=== PATIENT | female | born 1955 | race American Indian/Alaskan Native ===

== ENCOUNTER 2017-01-26 21:03 | Emergency (ER) | payer MEDICARE ==
--- NOTE | 2017-01-27 02:52 | Emergency Department Report ---
ED General Adult HPI - General Chief complaint: Tube Replacement Stated complaint: PEG TUBE REPLACE Time Seen by Provider: 01/26/17 21:25 Source: EMS Mode of arrival: Stretcher Limitations: No Limitations - History of Present Illness Initial comments: 61-year-old female with past medical history of hypertension, cerebral infarction, aphasia, vascular dementia, dysphagia, and G-tube dependence presents to the hospital complains of dislodgment of G-tube prior to arrival. [facility] did not provide her previous G-tube size. Per medical record review patient had a 20 Danish G-tube placed in December 2015. Patient denies any pain. Severity scale (0 -10): 0 - Related Data Home Medications Medication Instructions Recorded Confirmed Last Taken Carvedilol 25 mg FEEDTUBE DAILY 11/13/15 11/13/15 11/12/15 08:00 Clopidogrel 75 mg FEEDTUBE DAILY 11/13/15 11/13/15 11/12/15 08:00 Furosemide 20 mg FEEDTUBE DAILY 11/13/15 11/13/15 11/12/15 08:00 Klor-Con 20 mg FEEDTUBE DAILY 11/13/15 11/13/15 11/12/15 08:00 Loperamide 2 mg FEEDTUBE DAILY 11/13/15 11/13/15 11/12/15 08:00 Ondansetron 4 mg FEEDTUBE DAILY 11/13/15 11/13/15 11/12/15 08:00 amLODIPine 10 mg FEEDTUBE DAILY 11/13/15 11/13/15 11/12/15 08:00 Allergies Allergy/AdvReac Type Severity Reaction Status Date / Time No Known Allergies Allergy Unverified 11/13/15 16:33 ED Review of Systems ROS: Stated complaint: PEG TUBE REPLACE Other details as noted in HPI Comment: All other systems reviewed and negative Other: Constitutional: No fevers chills Eyes: No eye pain visual changes ENT: No ear pain or throat pain Neck: Denies pain Respiratory: Denies cough wheezing shortness of breath Cardiovascular: Denies chest pain GI: Denies abdominal pain Musculoskeletal: Denies back pain Neurologic: Denies headache ED Past Medical Hx - Past Medical History Previous Medical History?: Yes Hx Hypertension: Yes Additional medical history: cerebral infarction, Aphasia, Afib, Vascular dementia, Polyosteoarthritis, Dysphagia, Cognitive Communication Deficit, Pneumonia, Acute Resp Failure. - Surgical History Additional Surgical History: gtube. IVC filter - Social History Smoking Status: Never Smoker Substance Use Type: None - Medications Home Medications: Home Medications Medication Instructions Recorded Confirmed Last Taken Type Carvedilol 25 mg FEEDTUBE DAILY 11/13/15 11/13/15 11/12/15 08:00 History Clopidogrel 75 mg FEEDTUBE DAILY 11/13/15 11/13/15 11/12/15 08:00 History Furosemide 20 mg FEEDTUBE DAILY 11/13/15 11/13/15 11/12/15 08:00 History Klor-Con 20 mg FEEDTUBE DAILY 11/13/15 11/13/15 11/12/15 08:00 History Loperamide 2 mg FEEDTUBE DAILY 11/13/15 11/13/15 11/12/15 08:00 History Ondansetron 4 mg FEEDTUBE DAILY 11/13/15 11/13/15 11/12/15 08:00 History amLODIPine 10 mg FEEDTUBE DAILY 11/13/15 11/13/15 11/12/15 08:00 History ED Physical Exam - General Limitations: No Limitations - Other Other exam information: MGeneral: No limitations, patient is alert in no acute distress Head exam: Atraumatic, normocephalic Eyes exam: Normal appearance ENT: Moist mucous membrane Neck exam: Normal inspection Respiratory exam: Clear to auscultation bilateral, no wheezes, rales, crackles Cardiovascular: Normal rate and rhythm, normal heart sounds Abdomen: Soft, nondistended, and nontender, with normal bowel sounds, no rebound, or guarding. PEG stoma noted Back: Normal Inspection Neurologic: Alert, follows commands cooperative, speech is not fluid but can answer basic questions, no facial droop, possible mild decreased strength in the right upper extremity. Sensation grossly intact Psychiatric: normal affect, normal mood Skin: Warm, dry, intact ED Course Vital Signs 01/26/17 01/26/17 01/26/17 21:21 21:26 23:00 Temperature 98.6 F Pulse Rate 74 67 Respiratory 18 18 14 Rate Blood Pressure 134/52 113/50 [Left] O2 Sat by Pulse 99 98 97 Oximetry 01/27/17 02:57 Temperature Pulse Rate 71 Respiratory 14 Rate Blood Pressure 123/77 [Left] O2 Sat by Pulse 99 Oximetry - Reevaluation(s) Reevaluation #1: 01/27/17 02:[address] a 18 Danish and a 16 Danish PEG tube unsuccessfully. I was able to place a 14 Danish tube successfully. Gastrografin study ordered - Consultations Consultation #1: 01/27/[address] Persaud after attempting to place 18 and then a 16 Danish catheter unsuccessfully. He states that I may place as small as a size patient tolerates then she may be discharged home with outpatient follow-up ED Medical Decision Making - Radiology Data Radiology results: report reviewed (x-ray Gastrografin study: Gastrostomy tube in proper position. Positive IVC filter) - Medical Decision Making Successful replacement of G-tube. I was only able to place a 14-gauge catheter. This was discussed with Dr. Persaud suggest patient follow-up within 1 week to have her PEG tube exchange. - Differential Diagnosis dislodged peg Critical Care Time: No Critical care attestation.: If time is entered above; I have spent that time in minutes in the direct care of this critically ill patient, excluding procedure time. ED Disposition Clinical Impression: Dislodged gastrostomy tube, PEG (percutaneous endoscopic gastrostomy) adjustment/replacement/removal Disposition: DC-01 TO HOME OR SELFCARE Is pt being admited?: No Does the pt Need Aspirin: No Condition: Stable Instructions: How to Use and Care for Your PEG Tube (ED) Additional Instructions: It is very important to follow-up with the GI doctor within 1 week for gastrostomy tube exchanged to larger size Referrals: PRIMARY MD ANISA [Primary Care Provider] - 2-3 Days FRANK PERSAUD MD [Staff Physician] - 3-5 Days (GI doctor ) Time of Disposition: 04:40
[2017-01-27 02:57] VITALS: BP 123/77
--- NOTE | 2017-01-27 04:29 | XRay Report ---
FINAL REPORT PROCEDURE: XR G-TUBE STUDY TECHNIQUE: Abdominal series, including supine and upright AP views. HISTORY: s/p g tube placement COMPARISON: No prior studies are available for comparison. FINDINGS: Bowel gas pattern:There is fecal impaction. There is no mechanical bowel obstruction. There is no bowel wall thickening.. Masses or calcifications:None . Bony structures:No significant abnormality . There is an IVC filter. Pneumoperitoneum:None . Other:There is a gastrostomy tube. There contrast in the tube and the stomach. There is no obstruction or leakage.. IMPRESSION: Gastrostomy tube is in proper position..
== END 2017-01-27 06:15 | disposition home or self-care (01) ==
LOC: ED 21:03
DX: K94.23 Gastrostomy malfunction (principal)
CPT/HCPCS: 43760; 74000; 99284; Q9963

== ENCOUNTER 2017-07-03 01:19 | Emergency (ER) | payer MEDICARE ==
--- NOTE | 2017-07-03 03:24 | Emergency Department Report ---
ED General Adult HPI - General Chief complaint: Tube Replacement Stated complaint: PULLED TUBE OUT Time Seen by Provider: 07/03/17 02:42 Source: EMS Mode of arrival: Stretcher Limitations: Altered Mental Status, Physical Limitation - History of Present Illness Initial comments: Patient is 61 years old shelter patient with history of CVA hypertension, sent from shelter for G-tube replacement. [facility] reported that patient G-tube fell off this evening. No other complaint. - Related Data Home Medications Medication Instructions Recorded Confirmed Last Taken Carvedilol 25 mg FEEDTUBE DAILY 11/13/15 11/13/15 11/12/15 08:00 Clopidogrel 75 mg FEEDTUBE DAILY 11/13/15 11/13/15 11/12/15 08:00 Furosemide 20 mg FEEDTUBE DAILY 11/13/15 11/13/15 11/12/15 08:00 Klor-Con 20 mg FEEDTUBE DAILY 11/13/15 11/13/15 11/12/15 08:00 Loperamide 2 mg FEEDTUBE DAILY 11/13/15 11/13/15 11/12/15 08:00 Ondansetron 4 mg FEEDTUBE DAILY 11/13/15 11/13/15 11/12/15 08:00 amLODIPine 10 mg FEEDTUBE DAILY 11/13/15 11/13/15 11/12/15 08:00 Allergies Allergy/AdvReac Type Severity Reaction Status Date / Time No Known Allergies Allergy Verified 07/03/17 02:12 ED Review of Systems ROS: Stated complaint: PULLED TUBE OUT Other details as noted in HPI Comment: All other systems reviewed and negative Constitutional: denies: chills, fever Respiratory: denies: cough, shortness of breath Cardiovascular: denies: chest pain, palpitations Gastrointestinal: denies: abdominal pain, nausea, vomiting ED Past Medical Hx - Past Medical History Previous Medical History?: Yes Hx Hypertension: Yes Additional medical history: cerebral infarction, Aphasia, Afib, Vascular dementia, Polyosteoarthritis, Dysphagia, Cognitive Communication Deficit, Pneumonia, Acute Resp Failure. - Surgical History Past Surgical History?: Yes Additional Surgical History: gtube. IVC filter - Social History Smoking Status: Never Smoker Substance Use Type: None - Medications Home Medications: Home Medications Medication Instructions Recorded Confirmed Last Taken Type Carvedilol 25 mg FEEDTUBE DAILY 11/13/15 11/13/15 11/12/15 08:00 History Clopidogrel 75 mg FEEDTUBE DAILY 11/13/15 11/13/15 11/12/15 08:00 History Furosemide 20 mg FEEDTUBE DAILY 11/13/15 11/13/15 11/12/15 08:00 History Klor-Con 20 mg FEEDTUBE DAILY 11/13/15 11/13/15 11/12/15 08:00 History Loperamide 2 mg FEEDTUBE DAILY 11/13/15 11/13/15 11/12/15 08:00 History Ondansetron 4 mg FEEDTUBE DAILY 11/13/15 11/13/15 11/12/15 08:00 History amLODIPine 10 mg FEEDTUBE DAILY 11/13/15 11/13/15 11/12/15 08:00 History ED Physical Exam - General Limitations: Altered Mental Status, Physical Limitation General appearance: alert, in no apparent distress - Head Head exam: Present: atraumatic, normocephalic - Eye Eye exam: Present: normal appearance - Neck Neck exam: Present: normal inspection. Absent: tenderness - Respiratory Respiratory exam: Present: normal lung sounds bilaterally. Absent: respiratory distress, wheezes, chest wall tenderness - Cardiovascular Cardiovascular Exam: Present: regular rate, normal rhythm, normal heart sounds - GI/Abdominal GI/Abdominal exam: Present: soft, normal bowel sounds, other (G-tube not in place.). Absent: distended, tenderness, guarding, rebound, rigid, organomegaly , mass, bruit, pulsatile mass, hernia - Feeding Tube Replacement Reason for Replacement: fell out Initial Tube Inserted: greater than 4 weeks Type of Tube: gastrostomy Use of Tube: medications and feeding Insertion Site Prior to Procedure: clean Tube Used for Reinsertion: [place] Tube Size (F): 14 Verification of Placement: auscultation Tube Secured by: G-tube attachment device Patient Tolerated Procedure: well, no complications Critical care attestation.: If time is entered above; I have spent that time in minutes in the direct care of this critically ill patient, excluding procedure time. ED Disposition Clinical Impression: Gastrostomy tube dysfunction Disposition: DC-01 TO HOME OR SELFCARE Is pt being admited?: No Condition: Stable Instructions: How to Use and Care for Your PEG Tube (ED) Referrals: NITA OSEI MD [Primary Care Provider] - 3-5 Days
[2017-07-03 07:15] VITALS: BP 88/40
== END 2017-07-03 07:38 | disposition home or self-care (01) ==
LOC: ED 01:19
DX: K94.29 Other complications of gastrostomy (principal); I10 Essential (primary) hypertension

== ENCOUNTER 2018-07-19 05:58 | Emergency (ER) | payer MEDICARE ==
[2018-07-19 06:13] VITALS: BP 150/64
--- NOTE | 2018-07-19 06:36 | Emergency Department Report ---
ED General Adult HPI - General Chief complaint: Tube Replacement Stated complaint: G TUBE COMPLICATIONS Time Seen by Provider: 07/19/18 06:34 Source: EMS Mode of arrival: Stretcher Limitations: Other - History of Present Illness Initial comments: 62-year-old female with a past medical history multiple chronic conditions and PEG tube presents to the hospital with a tear in her G tube. Patient denies any pain Severity scale (0 -10): 0 - Related Data Home Medications Medication Instructions Recorded Confirmed Last Taken Carvedilol 25 mg FEEDTUBE DAILY 11/13/15 11/13/15 11/12/15 08:00 Clopidogrel 75 mg FEEDTUBE DAILY 11/13/15 11/13/15 11/12/15 08:00 Furosemide 20 mg FEEDTUBE DAILY 11/13/15 11/13/15 11/12/15 08:00 Klor-Con 20 mg FEEDTUBE DAILY 11/13/15 11/13/15 11/12/15 08:00 Loperamide 2 mg FEEDTUBE DAILY 11/13/15 11/13/15 11/12/15 08:00 Ondansetron 4 mg FEEDTUBE DAILY 11/13/15 11/13/15 11/12/15 08:00 amLODIPine 10 mg FEEDTUBE DAILY 11/13/15 11/13/15 11/12/15 08:00 Allergies Allergy/AdvReac Type Severity Reaction Status Date / Time No Known Allergies Allergy Verified 07/03/17 02:12 ED Review of Systems ROS: Stated complaint: G TUBE COMPLICATIONS Other details as noted in HPI Comment: All other systems reviewed and negative ED Past Medical Hx - Past Medical History Hx Hypertension: Yes Additional medical history: cerebral infarction, Aphasia, Afib, Vascular dementia, Polyosteoarthritis, Dysphagia, Cognitive Communication Deficit, Pneumonia, Acute Resp Failure. - Surgical History Additional Surgical History: gtube. IVC filter - Social History Smoking Status: Never Smoker Substance Use Type: None - Medications Home Medications: Home Medications Medication Instructions Recorded Confirmed Last Taken Type Carvedilol 25 mg FEEDTUBE DAILY 11/13/15 11/13/15 11/12/15 08:00 History Clopidogrel 75 mg FEEDTUBE DAILY 11/13/15 11/13/15 11/12/15 08:00 History Furosemide 20 mg FEEDTUBE DAILY 11/13/15 11/13/15 11/12/15 08:00 History Klor-Con 20 mg FEEDTUBE DAILY 11/13/15 11/13/15 11/12/15 08:00 History Loperamide 2 mg FEEDTUBE DAILY 11/13/15 11/13/15 11/12/15 08:00 History Ondansetron 4 mg FEEDTUBE DAILY 11/13/15 11/13/15 11/12/15 08:00 History amLODIPine 10 mg FEEDTUBE DAILY 11/13/15 11/13/15 11/12/15 08:00 History ED Physical Exam - General Limitations: Other - Other Other exam information: General: No limitations, patient is alert in no acute distress Head exam: Atraumatic, normocephalic Eyes exam: Normal appearance ENT: Moist mucous membrane Neck exam: Normal inspection Respiratory exam: Clear to auscultation bilateral, no wheezes, rales, crackles Cardiovascular: Normal rate and rhythm, normal heart sounds Abdomen: Soft, nondistended, left upper quadrant g tube with tear in tubing Extremity: Full range of motion normal inspection no deformity Back: Normal Inspection, full range of motion, no tenderness Neurologic: Alert, nonverbal from previous CVA, contraction of right arm secondary to CVA Psychiatric: normal affect, normal mood Skin: Warm, dry, intact ED Course Vital Signs 07/19/18 06:08 Temperature 98.9 F Pulse Rate 83 Respiratory 17 Rate Blood Pressure 150/64 [Left] O2 Sat by Pulse 99 Oximetry - Feeding Tube Replacement Reason for Replacement: not functioning/damaged Initial Tube Inserted: greater than 4 weeks Type of Tube: gastrostomy Use of Tube: medications and feeding Insertion Site Prior to Procedure: clean Tube Used for Reinsertion: other Ukrainian Tube Size (F): 18 Balloon Size (mls): 1 Verification of Placement: KUB, gastrograffin injection Tube Secured by: tape/dressing, G-tube attachment device Patient Tolerated Procedure: well Complications: other (none) ED Medical Decision Making - Radiology Data Radiology results: report reviewed X-RAY G-TUBE STUDY History: G-tube confirmation. Findings: Images demonstrate contrast agent injected through the PEG tube which terminates in the mid stomach. There is no evidence for obstruction or extravasation. Impression: The PEG tube terminates in the mid stomach. - Medical Decision Making X-ray confirms adequate G-tube placement. Patient will be discharged back tenderness - Differential Diagnosis G-tube placement, G-tube tear Critical Care Time: No Critical care attestation.: If time is entered above; I have spent that time in minutes in the direct care of this critically ill patient, excluding procedure time. ED Disposition Clinical Impression: Complication of feeding tube, Encounter for feeding tube placement Disposition: TO HOME OR SELFCARE Is pt being admited?: No Does the pt Need Aspirin: No Condition: Stable Instructions: How to Use and Care for Your PEG Tube (ED) Additional Instructions: Take the medication as prescribed. Follow up with your doctor or the clinic/doctor provided. Return if symptoms worsen as indicated by your discharge instructions Referrals: PRIMARY CARE, [Primary Care Provider] - 3-5 Days Time of Disposition: 08:34
--- NOTE | 2018-07-19 08:21 | XRay Report ---
X-RAY G-TUBE STUDY History: G-tube confirmation. Findings: Images demonstrate contrast agent injected through the PEG tube which terminates in the mid stomach. There is no evidence for obstruction or extravasation. Impression: The PEG tube terminates in the mid stomach.
== END 2018-07-19 10:30 | disposition home or self-care (01) ==
LOC: ED 05:58
DX: T85.518A Breakdown (mechanical) of other gastrointestinal prosthetic devices, implants and grafts, initial encounter (principal); I10 Essential (primary) hypertension
CPT/HCPCS: 43762; 74018; 99283; Q9963; 99282

== ENCOUNTER 2019-04-19 03:13 | Emergency (ER) | payer MEDICARE ==
--- NOTE | 2019-04-19 03:57 | Emergency Department Report ---
HPI - General Chief Complaint: GI Bleed Time Seen by Provider: 04/19/19 03:20 - HPI HPI: 63-year-old -[place] female presents to the emergency department via EMS from her [facility] facility with a complaint of vomiting blood 3.. The patient had some vomit with some bright red blood while the patient was being fed through her feeding tube. The nurse stopped the feeding tube but she still had 2 further episodes of vomiting with blood. She has a past medical history of previous CVA, vascular dementia, paroxysmal A. fib and the patient is nonverbal at baseline. She does not her head to answer questions. She denies any chest or abdominal pain, current nausea. ED Past Medical Hx - Past Medical History Previous Medical History?: Yes Hx Hypertension: Yes Hx Dementia: Yes Additional medical history: cerebral infarction, Aphasia, Afib, Vascular dementia, Polyosteoarthritis, Dysphagia, Cognitive Communication Deficit, Pneumonia, Acute Resp Failure. - Surgical History Past Surgical History?: Yes Additional Surgical History: gtube. IVC filter - Social History Smoking Status: Unknown if ever smoked - Medications Home Medications: Home Medications Medication Instructions Recorded Confirmed Last Taken Type Carvedilol 25 mg FEEDTUBE DAILY 11/13/15 11/13/15 11/12/15 08:00 History Clopidogrel 75 mg FEEDTUBE DAILY 11/13/15 11/13/15 11/12/15 08:00 History Furosemide 20 mg FEEDTUBE DAILY 11/13/15 11/13/15 11/12/15 08:00 History Klor-Con 20 mg FEEDTUBE DAILY 11/13/15 11/13/15 11/12/15 08:00 History Loperamide 2 mg FEEDTUBE DAILY 11/13/15 11/13/15 11/12/15 08:00 History Ondansetron 4 mg FEEDTUBE DAILY 11/13/15 11/13/15 11/12/15 08:00 History amLODIPine 10 mg FEEDTUBE DAILY 11/13/15 11/13/15 11/12/15 08:00 History ED Review of Systems ROS: Stated complaint: VOMITING BLOOD Other details as noted in HPI Comment: All other systems reviewed and negative Constitutional: denies: fever Respiratory: denies: shortness of breath Cardiovascular: denies: chest pain Gastrointestinal: abdominal pain, hematemesis Physical Exam - Physical Exam Vital Signs: Vital Signs 04/19/19 03:42 Temperature 97.6 F Pulse Rate 68 Respiratory 16 Rate Blood Pressure 116/48 [Left] O2 Sat by Pulse 99 Oximetry Physical Exam: GENERAL: The patient is well-developed well-nourished. HENT: Normocephalic. Atraumatic. Patient has moist mucous membranes. EYES: Extraocular motions are intact. Pupils equal reactive to light christiano aterally. NECK: Supple. Trachea is midline. CHEST/LUNGS: Clear to auscultation. There is no respiratory distress noted. HEART/CARDIOVASCULAR: Regular. There is no tachycardia. There is no murmur. ABDOMEN: Abdomen is soft, nontender. Patient has normal bowel sounds. There is no abdominal distention. There is a G-tube in place. No signs of any infection. No blood seen in the 2. SKIN: Skin is warm and dry. NEURO: The patient is awake and cooperative but is nonverbal. She answers questions with head nodding and shaking. MUSCULOSKELETAL: There is no tenderness or deformity. ED Course Vital Signs 04/19/19 03:42 Temperature 97.6 F Pulse Rate 68 Respiratory 16 Rate Blood Pressure 116/48 [Left] O2 Sat by Pulse 99 Oximetry ED Medical Decision Making - Lab Data Result diagrams: 04/19/19 03:47 04/19/19 03:47 - Radiology Data Radiology results: image reviewed interpreted by me: Chest x-ray does not show any acute process. There are no pleural effusions, obvious pneumonia and there is no pneumothorax. Abdominal x-ray shows increased stool volume but otherwise no acute process. - Medical Decision Making This patient was brought in from her correction after there were allegedly 3 episodes of hematemesis with bright red blood prior to arrival. Since being in the emergency department the patient has been awake and in no acute distress and there have been no signs of any hematemesis or GI bleeding. The abdomen is soft and nondistended. The feeding tube does not have any blood in it. There is no blood seen in the oral pharynx. The patient is able to answer questions with shaking and nodding and denies having any physical complaints at this time. Labs were mostly unremarkable. Hemoglobin was almost 13. Her vital signs are stable throughout her ED course. The patient has been in the emergency d epartment and reevaluated multiple times over almost 3 hours and there has been no return of any nausea, vomiting or hematemesis. She'll be discharged home to follow-up with her primary care physician and has been given a referral for gastroenterology. She's been instructed to return to the emergency Department with any further episodes of GI bleeding, worsening of her symptoms, or with any acute distress. - Differential Diagnosis gastric ulcer, Tonja-Ch tear, esophageal varices Critical Care Time: No Critical care attestation.: If time is entered above; I have spent that time in minutes in the direct care of this critically ill patient, excluding procedure time. ED Disposition Clinical Impression: Hematemesis Qualifiers: Nausea presence: unspecified Qualified Code(s): K92.0 - Hematemesis Disposition: - TO HOME OR SELFCARE Is pt being admited?: No Condition: Stable Instructions: Gastrointestinal Bleeding (ED) Additional Instructions: Please follow-up with your primary care physician in the next few days. I have also given you a referral for a local paving and surfacing labourer, Dr. Mosquera, who is part of a larger group, to follow up regarding the GI bleeding/hematemesis. Please return to the emergency Department with any worsening of your symptoms or any acute distress. Referrals: LEENA LANGE MD [Primary Care Provider] - 2-3 Days FRANK MOSQUERA MD [Staff Physician] - 2-3 Days Time of Disposition: 05:42
[2019-04-19 04:20] LABS: Hematocrit 39.6 % (30.3-42.9); Hemoglobin 12.8 gm/dl (10.1-14.3); Mean Corpuscular HGB Conc 32 % (30-34); Mean Corpuscular Volume 83 fl (79-97); Platelet Count 255 K/mm3 (140-440)
[2019-04-19 04:29] LABS: INR 0.91 (0.87-1.13)
[2019-04-19 04:30] LABS: Partial Thromboplastin Time 31.1 Sec. (24.2-36.6)
[2019-04-19 04:44] LABS: Alanine Aminotransferase 16 units/L (7-56); Albumin 3.4 g/dL (3.9-5); BUN/Creatinine Ratio 20; Blood Urea Nitrogen 16 mg/dL (7-17); Calcium 9.2 mg/dL (8.4-10.2); Hemolysis Index 26
--- NOTE | 2019-04-19 04:53 | XRay Report ---
ABDOMEN 4 VIEWS INDICATION / CLINICAL INFORMATION: hematemesis. COMPARISON: None available. FINDINGS: BOWEL: Moderate amount retained stool is seen throughout the colon and rectum. Fecal impaction is pre sent. Otherwise, bowel gas pattern is normal. FREE AIR / EXTRALUMINAL GAS: None seen. CALCIFICATIONS: No significant abnormal calcifications. ADDITIONAL FINDINGS: IVC filter is present. Gastrostomy tube is present in the left mid abdomen witho ut obvious abnormality. LUNGS: PA view of the chest does not show any acute pulmonary or pleural abnormality. SKELETAL STRUCTURES: No significant abnormality. IMPRESSION: 1. Moderate amount retained stool suggesting constipation. Fecal impaction. 2. No other significant abnormality identified. Signer Name: Kimberly Hutchison MD Signed: 04/19/2019 4:49 AM Workstation Name: [id number]
[2019-04-19 06:08] LABS: Anisocytosis 1+; Basophils % (Manual) 0 % (0.0-1.8); Platelet Estimate Consistent w Auto; Total Cells Counted 100
[2019-04-19 06:15] VITALS: BP 121/43
== END 2019-04-19 06:59 | disposition home or self-care (01) ==
LOC: ED 03:13
DX: K92.0 Hematemesis (principal); I10 Essential (primary) hypertension; I48.91 Unspecified atrial fibrillation; Z79.899 Other long term (current) drug therapy
CPT/HCPCS: 36415; 74022; 80053; 83690; 85007; 85025; 85610; 85730; 99284

== ENCOUNTER 2020-12-28 17:44 | Emergency (ER) | payer MEDICARE | END 2020-12-28 18:44 | disposition left against medical advice (07) | LOC: ED 17:44 | DX: Z43.1 Encounter for attention to gastrostomy (principal); Z53.21 Procedure and treatment not carried out due to patient leaving prior to being seen by health care provider ==